=== PATIENT | female | born 1945 | race Caucasian/White ===

== ENCOUNTER 2016-08-02 10:03 | Day surgery (SDC) | payer MEDICARE ==
[2016-08-01 08:49] LABS: BASOPHILS 0.1 %; BASOPHILS ABSOLUTE 0.01 10/3/uL (0.0-0.16); EOSINOPHILS 1.7 %; EOSINOPHILS ABSOLUTE 0.14 10/3/uL (0.0-0.53); IMMATURE GRANULOCYTES 0.1 %; IMMATURE GRANULOCYTES ABSOLUTE 0.01 10/3/uL (0.0-0.11); LYMPHOCYTES 35.1 %; LYMPHOCYTES ABSOLUTE 2.95 10/3/uL (0.67-4.30); MEAN CORPUS HGB CONC 33.7 g/dL (32.0-36.0); MEAN CORPUSCULAR HEMOGLOB 30.6 pg (26.0-34.0); MEAN PLATELET VOLUME 8.9 fL (9.2-13.0); MONOCYTES 6.3 %; MONOCYTES ABSOLUTE 0.53 10/3/uL (0.21-1.20); NEUTROPHILS 56.7 %; NEUTROPHILS ABSOLUTE 4.77 10/3/uL (2.02-8.40); RBC DISTRIBUTION WIDTH 13.4 % (12.0-16.0); WHITE BLOOD CELLS 8.4 10/3/uL (4.5-10.5)
[2016-08-01 08:50] LABS: HEMATOCRIT 41.6 % (36.0-48.0); MANUAL DIFF NO %; PLATELET COUNT 225 10/3/uL (150-400); RED CELL COUNT 4.57 10/6/uL (4.0-5.6)
[2016-08-01 09:10] LABS: CHLORIDE, SERUM 109 MMOL/L (96-112); CO2 (CARBON DIOXIDE) 30 MMOL/L (24-34); CREATININE 0.75 MG/DL (0.55-1.02); GFR AFRICAN AMERICAN 92 ML/MIN (>=60); GFR NON AFRICAN AMERICAN 80 ML/MIN (>=60); GLUCOSE, SERUM 87 MG/DL (60-99); POTASSIUM, SERUM 4.4 MMOL/L (3.5-5.3); SGOT(AST) 20 U/L (5-40); SGPT(ALT) 18 U/L (5-65); SODIUM, SERUM 144 MMOL/L (135-148); TOTAL BILIRUBIN 0.3 MG/DL (0-1.2)
[2016-08-01 09:11] LABS: A/G RATIO 1.3 (0.7-1.9); ALBUMIN 3.9 G/DL (3.5-5.0); ALKALINE PHOSPHATASE 132 U/L (45-117); BUN (BLOOD UREA NITROGEN) 11 MG/DL (6-23); CALCIUM, SERUM 9.5 MG/DL (8.5-10.4); TOTAL PROTEIN 6.9 G/DL (6.0-8.5)
--- NOTE | ~2016-08-02 | OP ---
Record Of Operation [facility] [address] [place]. 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 PROCEDURE: Radical resection of soft tissue neoplasm from right upper extremity. SURGEON: Huma Martines M.D. ANESTHESIA: General with intubation. COMPLICATIONS: None. ESTIMATED BLOOD LOSS: Less than 5 mL. SPECIMENS: Mass from right upper extremity. DRAINS: None. LAP AND SPONGE COUNT: Correct x3. BRIEF HISTORY: This 71-year-old female presented with enlarging symptomatic soft tissue neoplasm of the right upper extremity. It was felt that resection of this mass was indicated from both diagnostic and therapeutic reasons. This procedure, the risks, benefits, and alternatives, including but not limited to the risk for bleeding, infection, pain, swelling, scarring, deformity to the area, seroma formation, hematoma formation, nerve injury, chronic paresthesia, pain in the arm, nerve injuries, muscle weakness, or paralysis to the upper extremity, chronic lymphedema of the arm, and unforeseen complications including deep venous thrombosis, pulmonary embolus, myocardial infarction, stroke, pneumonia, and , were fully explained to the patient prior to surgery. Her questions were answered. She fully understood the risks and agreed to the surgery as planned. DESCRIPTION OF PROCEDURE: After being appropriately identified and after discussing the risks and benefits of the surgery with her again in the preoperative area, and after identifying the mass with her in the preoperative area, the patient was taken to the operating room and placed in the supine position on the operating room table. General anesthesia was administered. She was intubated without difficulty. The right upper extremity was prepped and draped sterilely in the usual fashion. After an appropriate "time out" per JCAHO standards, a vertical incision was made directly over the mass over the lateral aspect of the midportion of the right upper extremity. The incision was continued through the subcutaneous tissue. Hemostasis was controlled with cautery. A well-defined, well-encapsulated mass was identified. Using sharp dissection, the mass was dissected from the surrounding tissues. The mass extended down to the level of the fascia. It was easily Record Of Operation [facility] [address] [place]. [address] NAME: PAXTON GARCIA : 43 STATUS : [facility]#: [id number] AGE: 71 ADM/REG DATE : 08/02/16 MR#: [id number] REPORT SERV DATE: 08/02/16 DICTATED BY: HUMA MARTINES III DATE: 08/02/16 REPORT STATUS : Draft TRANSCRIBED BY: KAILYN DATE: 08/02/16 dissected off the fascia and did not invade through the fascia level. At no point any neurovascular structures encountered or injured. The mass was completely resected. It was about 8 cm in length. Hemostasis was assured. The subcutaneous tissue was closed with a running 3-0 chromic suture. The skin was closed with running subcuticular 4-0 Monocryl stitch. The incision was injected with 0.5% Marcaine. Dressings were applied. Anesthesia was reversed and the patient was taken to the recovery room in stable condition. She tolerated the procedure well. Her family was informed the results of the surgery. The patient was discharged when stable and comfortable. Her family was advised that she should keep the wound clean and dry for [address] hours[address] She should not drive for two to three days after surgery or while using narcotics, and that she should resume her usual medications. She has been asked to return in two weeks for followup, sooner if any fever, chills, wound drainage, or other problems prior to that time. She was given a prescription for Percocet 7.5 one t.i.d. #12 as needed for pain, which she was advised not to use while driving. Her family was advised that she should resume her usual medications and that she should keep the wound clean and dry for 48 hours. JORGE/KAILYN Huma Martines III, M.D. / [id number] CC: Guerita Lama III, M.D.
--- NOTE | ~2016-08-02 | PREOPHP ---
PreOp History and Physical [address] [id number] [place]. [address] NAME: PAXTON GARCIA : 43 [place] : [place] [facility] [place] [id number] AGE: 71 ADM/REG DATE : MR#: [id number] REPORT SERV DATE: 08/02/16 DICTATED BY: HUMA MARTINES III DATE: 07/22/16 REPORT STATUS : Draft TRANSCRIBED BY: MODL DATE: 07/22/16 HISTORY OF PRESENT ILLNESS: This is a 71-year-old female who comes to the operating room for resection of a large mass over her right upper extremity. The patient has a large 7 cm mass over the right upper extremity. This has been present for at least four years. This has become larger with time and sometimes erythematous. This has been become more painful and uncomfortable. The patient comes now for resection of this mass. PAST MEDICAL HISTORY: 1. History of hiatal hernia with apparent gastroesophageal reflux disease and esophageal stricture, requiring routine dilatations at [facility]. She has chronic dysphagia related to this. 2. Degenerative joint disease. 3. History of chronic pain. 4. History of deep venous thrombosis. MEDICATIONS: Aspirin. ALLERGIES: NONE. PAST SURGICAL HISTORY: None. FAMILY HISTORY: Positive for heart disease and diabetes. SOCIAL HISTORY: No history of tobacco or alcohol use. REVIEW OF SYSTEMS: The patient's 14-point review of systems was otherwise unremarkable except for dysphagia. PHYSICAL EXAMINATION: GENERAL: Reveals a female, in no acute distress. She is alert and oriented x3. VITAL SIGNS: Blood pressure 107/73, pulse 87, temperature 98.7. HEENT: Unremarkable. Cranial nerves 2 through 12 are normal. LUNGS: Clear. CARDIAC: Normal. EXTREMITIES: Over the right upper extremity, there is a large 7 cm soft tissue mass over the right upper arm. It is soft, discrete, mobile, and nontender. ASSESSMENT: 1. 71-year-old female with enlarging soft tissue mass of right upper extremity. 2. History of esophageal stricture requiring frequent dilatation. 3. History of hiatal hernia. 4. History of deep venous thrombosis. 5. Degenerative joint disease. PLAN: The patient comes to the operating room now for resection of this mass. This procedure, the risks, benefits, and alternatives, including not limited to the risk for bleeding, infection, pain, swelling, scarring, deformity to the area, seroma formation, PreOp History and Physical [address] [address] NAME: PAXTON GARCIA : 43 STATUS : PRE [facility]#: [id number] AGE: 71 ADM/REG DATE : MR#: [id number] REPORT SERV DATE: 08/02/16 DICTATED BY: HUMA MARTINES III DATE: 07/22/16 REPORT STATUS : Draft TRANSCRIBED BY: KAILYN DATE: 07/22/16 hematoma formation, nerve injury, chronic paresthesias, pain, numbness, neuralgia or neuroma of the involved extremity, nerve injuries, muscle weakness, or paralysis to the involved extremity, and unforeseen complications including deep venous thrombosis, pulmonary embolus, myocardial infarction, stroke, pneumonia, and , have been explained to the patient prior to surgery. Her questions have been answered. She understands the risks and agrees to surgery as planned. JORGE/KAILYN Huma Martines III, M.D. / [id number]
[~2016-08-02 10:03] MED LIST: ASA5GR PO; ASABAYER PO; CENTRUM PO; COZAAR100 MG PO; FISH-EPA1000 MG PO; KLONO1 PO; KLONO5 PO; KLOR-CON 1010 MEQ PO; KLOR-CON M1010 MEQ PO; LEVSINTAB SL; LINZESS 145 M145 MCG PO; MULTIPLE VIT PO; NORCO1 TA1 PO; NORCO1 TA2 PO; NORCO1 TAB PO; PR25 PO; PRIN20 PO; PROAIR HFA INH; PROTONIX PO; REQUIP3 PO; TOPAMAX25 PO; ZANTAC150 MG PO; ZOFRAN4 PO
== END 2016-08-02 15:00 | disposition home or self-care (01) ==
LOC: SDC 10:03
PROVIDERS: Surgery
PROC: 0JBD0ZZ Excision of Right Upper Arm Subcutaneous Tissue and Fascia, Open Approach (ICD-10-PCS; principal; 2016-08-02 11:45)
DX: D17.9 Benign lipomatous neoplasm, unspecified (principal); J45.909 Unspecified asthma, uncomplicated; H26.9 Unspecified cataract; F32.9 Major depressive disorder, single episode, unspecified; H91.90 Unspecified hearing loss, unspecified ear; M19.90 Unspecified osteoarthritis, unspecified site; M10.9 Gout, unspecified; Z86.73 Personal history of transient ischemic attack (TIA), and cerebral infarction without residual deficits; Z86.718 Personal history of other venous thrombosis and embolism; Z90.49 Acquired absence of other specified parts of digestive tract; Z90.711 Acquired absence of uterus with remaining cervical stump; Z79.82 Long term (current) use of aspirin; Z79.899 Other long term (current) drug therapy; Z98.890 Other specified postprocedural states
CPT/HCPCS: 71020; 80053; 85025; 88304; 93005; J0330; J0690; J2405